=== PATIENT | male | born 1985 | race Asian ===

== ENCOUNTER 2024-10-27 23:50 | Inpatient (IN) | payer MEDICAID, OTHER ==
[~2024-10-27] VITALS: Ht 180.3 cm; Wt 79.5 kg
[2024-10-28] VITALS (10 sets, daily range): BP systolic 107–135; BP diastolic 53–83; PULSE 72–108; RESP 12–21; TEMP 97.5–98.3; O2SAT 97–99
[2024-10-28 00:44] LABS: Basophils # (auto) 0 10 ^3/uL (0-0.2); Basophils % (auto) 0.4 % (0.0-2.0); Eosinophils # (auto) 0 10 ^3/uL (0-0.8); Lymphocytes # (auto) 1.9 10 ^3/uL (0.4-5.4); Monocytes # (auto) 0.8 10 ^3/uL (0-1.3); Platelet Count (auto) 292 10^3/uL (140-450); Red Blood Cells 1.91 10^6/uL (4.5-5.90)
[2024-10-28 00:45] LABS: Eosinophils % (auto) 0.1 % (0.0-7.0); Hematocrit 17.4 % (41.0-53.0); Lymphocytes % (auto) 19.1 % (10.0-50.0); Mean Corpuscular Hemoglobin 32.5 pg (28.0-32.0); Mean Corpuscular Hgb Conc. 35.6 g/dL (32.0-36.0); Mean Corpuscular Volume 91.2 fL (80.0-100.0); Monocytes % (auto) 7.9 % (0.0-12.0); Neutrophils # (auto) 7.1 10 ^3/uL (1.6-8.6); Neutrophils % (auto) 72.5 % (37.0-80.0); Red Cell Distribution Width 14.9 % (11.8-14.3); White Blood Cell 9.9 10^3/uL (4.4-10.8)
[2024-10-28 00:57] LABS: Anion Gap 9 (5-15); Carbon Dioxide 24 mmol/L (20-31); Chloride 94 mmol/L (98-107); Potassium 3.5 mmol/L (3.5-5.1); Sodium 127 mmol/L (136-145)
[2024-10-28 00:59] LABS: Hemoglobin 6.2 g/dL (13.5-17.5)
[2024-10-28 01:02] LABS: BUN/Creatinine Ratio 25.5 (10.0-20.0)
[2024-10-28 01:10] LABS: Blood Urea Nitrogen 24 mg/dL (9-23); Calcium 8.2 mg/dL (8.7-10.4); Glucose 131 mg/dL (74-106)
--- NOTE | 2024-10-28 01:10 | ED.PDOC ---
History of Present Illness HPI Comments 39 y/o M, with a history of anxiety, panic attacks, PUD, and methamphetamine abuse, is BIBA for anxiety. Per EMS report, patient is a poor historian. He called, initially, for c/o anxiety and generalized abdominal pain following crystal meth use 2x hours prior to ED arrival. Vitals were noted to have been st able and within nithin limits. At time of assessment, patient endorses on anxiety symptom in addition to having associated shortness of breath and vomiting blood for the past few days. He denies any substance use along with any further associated symptoms. Further history is limited, due to patient's current condition and absence of family/crisis therapist historian. Chief Complaint: Abdominal Pain Time Seen by MD: 00:10 Allergies: Coded Allergies: NO KNOWN ALLERGIES (Unverified , 10/28/24) Mode of Arrival: EMS Past Medical History PAST MEDICAL HISTORY: Anxiety, PUD Past Medical History (Other): panic attacks Surgical History: Denies all surgeries Family History Family History: Unknown Social History Smoker: Non-Smoker Alcohol: Denies ETOH Use Drugs: Methamphetamine Lives In: Home All Other Systems: Reviewed and Negative (Comprehensive systems review obtained and negative except for what is stated in the HPI.) Physical Exam General Appearance: No Apparent Distress, Normal HEENT: Normal ENT Inspection, Pharynx Normal, TMs Normal Neck: Full Range of Motion, Non-Tender, Normal, Normal Inspection Respiratory: Chest Non-Tender, Lungs Clear, No Accessory Muscle Use, No Respiratory Distress, Normal Breath Sounds Cardiovascular: No Edema, No JVD, No Murmur, No Gallop, Normal Peripheral Pulses, Regular Rate/Rhythm Breast Exam: Deferred Gastrointestinal: No Organomegaly, Non Tender, No Pulsatile Mass, Normal Bowel Sounds, Soft Genitalia: Deferred Pelvic: Deferred Rectal: Deferred Extremities: No calf tenderness, Normal capillary refill, Normal inspection, Normal range of motion, Non-tender, No pedal edema Musculoskeletal : Apperance: Normal Neurologic: Alert, traffic law attorney II-XII nml as Tested, No Motor Deficits, Normal Affect, Normal Mood, No Sensory Deficits Cerebellar Function: Normal Reflexes: Normal Skin: Dry, Normal Color, Warm Lymphatic: No Adenopathy Was a procedure done? Was a procedure done?: No Differential Dx Considerations may include: Methamphetamine abuse, substance abuse/dependency, toxic metabolic enc ephalopathy, anxiety, among others X-Ray, Labs, Meds, VS Vital Signs Date Time Temp Pulse Resp B/P (MAP) Pulse Ox O2 Delivery O2 Flow Rate FiO2 10/28/24 04:00 96 10/28/24 02:56 97.5 96 19 120/75 (90) 99 97.5 10/27/24 23:59 98.3 108 19 149/54 (85) 99 98.3 10/27/24 23:51 99 Lab Test 10/28/24 00:37 Range/Units White Blood Count 9.9 4.4-10.8 10^3/uL Red Blood Count 1.91 L 4.5-5.90 10^6/uL Hemoglobin 6.2 *L 13.5-17.5 g/dL Hematocrit 17.4 L 41.0-53.0 % Mean Corpuscular Volume 91.2 80.0-100.0 fL Mean Corpuscular Hemoglobin 32.5 H 28.0-32.0 pg Mean Corpuscular Hemoglobin Concent 35.6 32.0-36.0 g/dL Red Cell Distribution Width 14.9 H 11.8-14.3 % Platelet Count 292 140-450 10^3/uL Mean Platelet Volume 7.6 6.9-10.8 fL Neutrophils (%) (Auto) 72.5 37.0-80.0 % Lymphocytes (%) (Auto) 19.1 10.0-50.0 % Monocytes (%) (Auto) 7.9 0.0-12.0 % Eosinophils (%) (Auto) 0.1 0.0-7.0 % Basophils (%) (Auto) 0.4 0.0-2.0 % Neutrophils # (Auto) 7.1 1.6-8.6 10 ^3/uL Lymphocytes # (Auto) 1.9 0.4-5.4 10 ^3/uL Monocytes # (Auto) 0.8 0-1.3 10 ^3/uL Eosinophils # (Auto) 0 0-0.8 10 ^3/uL Basophils # (Auto) 0 0-0.2 10 ^3/uL Nucleated Red Blood Cells 0.0 % Sodium Level 127 L 136-145 mmol/L Potassium Level 3.5 3.5-5.1 mmol/L Chloride Level 94 L 98-107 mmol/L Carbon Dioxide Level 24 20-31 mmol/L Anion Gap 9 5-15 Blood Urea Nitrogen 24 H 9-23 mg/dL Creatinine 0.94 0.700-1.30 mg/dL Glomerular Filtration Rate Calc 105 >90 mL/min BUN/Creatinine Ratio 25.5 H 10.0-20.0 Serum Glucose 131 H 74-106 mg/dL Calcium Level 8.2 L 8.7-10.4 mg/dL Current Medications Medications (Trade) Dose Ordered Sig/Daniel Route Start Time Stop Time Status Last Admin Pantoprazole Sodium (Protonix) 80 mg ONCE ONCE IV 10/28/24 02:00 10/28/24 02:03 DC 10/28/24 03:04 Time of 1ST Reevaluation: 00:40 Reevaluation 1ST: Unchanged Patient Education/Counseling: Diagnosis, Treatment, Other (need for observation ) Family Education/Counseling: No Family Present Additional Information Previous visits reviewed: N/A The following tests were ordered, and results were reviewed by me: CXR, drug screen, UA, BMP, CBC Additional Information was gathered from interviewing the following independent historians: EMS I reviewed and agreed with the following test results read by other providers: CXR I discussed treatment and results with medical personnel and: patient Departure 1 Departure Time of Disposition: 04:14 (Patient presented with abdominal pain that was concerning for possible appendicits, gastritis, cholecystitis, colitis, gastroenteritis, sbo, or orther possible surgical emergency. Data: 1. I ordered and reviewed the result of at least 3 labs including a CBC, BMP, and Urinalysis. 2. I independently interpreted the following tests: CT Abdoment and Pelvis is concerning for diffuse colitis .Risk:This patient has a high risk of morbidity due to further diagnostic testing or treatment and may suffer from an acute abdominal process disorder. Workup reveals symptomatic anemia and colitis and patient should be admitted for further workup. and possible expert consultation. ) Impression: Primary Impression: Symptomatic anemia Additional Impression: Peptic ulcer disease Disposition: ADMITTED INPATIENT Admit to: Tele Condition: Guarded Critical Care Note Critical Care Time?: Yes Critical care comment: Symptomatic anemia Authorized and Performed by: Maricruz Gutierres MD Total critical care time: Approximately 39 minutes Due to a high probability of clinically significant, life threatening deterioration, the patient required my highest level of preparedness to intervene emergently and I personally spent this critical care time directly and personally managing the patient. This critical care time included obtaining a history; examining the patient; pulse oximetry; ordering and review of studies; arranging urgent treatment with development of a management plan; evaluation of patient's response to treatment; frequent reassessment; and, discussions with other providers. This critical care time was performed to assess and manage the high probability of imminent, life-threatening deterioration that could result in multi-organ failure. It was exclusive of separately billable procedures and treating other patients and teaching time. Please see my other sections and the rest of the note for further information on patient assessment and treatment. Stability Stability form required: No Heart Score Heart Score: Heart Score Response (Comments) Value History N/A 0 EKG N/A 0 Age N/A 0 Risk Factors N/A 0 Troponin N/A 0 Total 0 I personally scribed for MARICRUZ GUTIERRES MD ([email or web address]) on 10/28/24 at 01:10. Electronically submitted by Emory José ([email or web address]). MARICRUZ GUTIERRES MD Oct 28, 2024 01:10
--- NOTE | 2024-10-28 01:34 | DVH ---
CHEST RADIOGRAPH Indication: epigastric pain Technique: Single frontal view of the chest was obtained COMPARISON: None FINDINGS: Lines and Tubes: None Lungs: Clear Pleura: No effusion. No pneumothorax. Cardiomediastinal contours: Unremarkable Bones: Unremarkable IMPRESSION: 1. No acute disease.
[2024-10-28] MEDS: IOHEXOL 300 MG/ML 100ML BOTTLE IJ ONE (03:01)
[2024-10-28] MEDS: PANTOPRAZOLE 40 MG/10 ML VIAL INJ IV ONE (03:04)
--- NOTE | 2024-10-28 03:10 | DVH ---
Exam: CT CT AB PEL WITH IV CON ONLY History: abdominal pain COMPARISON: None Technique: Multidetector spiral CT of the abdomen and pelvis was performed from lung bases to pubic s ymphysis. Intravenous contrast was administered during this examination. Portal venous imaging was o btained. Axial, coronal and sagittal multiplanar reformats were performed by the technologist on a [id number] workstation. Radiation Dose : 1. Abdomen/Pelvis: CTDIvol 9.96mGy, DLP 572.27 mGy*cm. Findings: Lung Bases: No acute or significant lung base finding. Normal heart size. No pleural or pericardial effusion. Liver: The liver is normal in size. No focal lesions. Normal hepatic vascular enhancement. Gallbladder and Biliary Tree: Unremarkable Spleen: Unremarkable Pancreas: The pancreas is normal in appearance without focal lesions or abnormal enhancement. Adrenal Glands: Unremarkable Kidneys: No hydronephrosis. Bladder: Unremarkable Bowel: The stomach is grossly normal in appearance. Moderate colonic stool. Mild inflammatory change in bowel wall thickening involving the gastric antrum and proximal duodenum. Normal appendix is visua lized in the right lower quadrant without findings of appendicitis. Ascites: Absent Lymphadenopathy: No mesenteric, retroperitoneal or periportal lymphadenopathy. Abdominal Wall and Mesentery: Unremarkable. Vasculature: The visualized abdominal aorta is normal in size and caliber. Abdominal and pelvic vess els demonstrate normal enhancement. Pelvic Organs: Unremarkable Musculoskeletal: No aggressive focal bony lesions, acute fractures or dislocation. IMPRESSION: Mild bowel wall thickening and inflammatory changes associated with the gastric antrum and proximal d uodenum. This may represent changes of gastritis / peptic ulcer disease.
--- NOTE | 2024-10-28 06:03 | DVHHPRES ---
History of Present Illness Resident Creating Document: REDDHERBERTTALHA RESIDENT History of Present Illness Patient is a 39-year-old male who was recently diagnosed with a peptic ulcer following endoscopy at [facility] presented to the ED with a chief complaint of severe abdominal pain and anxiety. Patient reports that he has been having abdominal pain for the last 2-3 days with the associated 3-4 episodes of bloody vomiting 2 days ago. He also reports of black dark-colored stool in the last 1 week. Patient reported that he had hematemesis about a month ago for the 1st time following which he went to [facility] and they did endoscopy and was diagnosed to with the gastric ulcer and sent home on PPI. He reported relief with the Protonix from the abdominal pain. Patient apparently ran out of his medication recently and started to have abdominal pain in the epigastric region nonradiating, constant with intermittent sharp episodes. Reports pain on swallowing to solid and liquid both and has sensation of food getting stuck in the chest. Past medical history: Peptic ulcer, anxiety Past Surgical history: Endoscopy Social history: Patient smokes about half a pack of cigarettes, occasional alcohol, denies any drug usage ( UDS pending ) Home medications: Omeprazole, Carafate, risperidone Review of Systems Review of Systems Patient seen and examined at the bedside Reports of [id number] epigastric pain associated with the nausea and dry heaving No current hematemesis Reports feeling anxious Allergies: Coded Allergies: NO KNOWN ALLERGIES (Unverified , 10/28/24) Medications Current Medications Medications Dose Ordered Sig/Daniel Route Start Time Stop Time Status Last Admin Dose Admin Pantoprazole Sodium 40 mg BID IV 10/28/24 10:00 Exam Vital Signs Vital Signs Date Time Temp Pulse Resp B/P (MAP) Pulse Ox O2 Delivery O2 Flow Rate FiO2 10/28/24 05:42 97.5 73 12 123/76 (92) 100 97.5 10/28/24 03:00 Room Air* 0 21 Exam Gen - mild conjunctival pallor, no icterus, no cyanosis, no clubbing, no LAD, no edema . Skin - Patients skin is warm and dry. HEENT - normocephalic, atraumatic, moist mucous membranes. Neck - full ROM, no LAD, no JVD Pulmonary - B/L equal breath sounds, no crackles, no wheezing, no stridor. cardiovascular - regular S1,S2 heard, no added sounds, no murmurs heard. peripheral pulses normal radial 2+, pedal 2+. capillary refill normal <2 secs. GI - soft abdomen with tenderness in the epigastric region. no hepatospleenomegaly. Bowel sounds normoactive Neurological - Patient is A/O X 3 . Bilateral upper extremity strength 5/5, bilateral lower extremity strength 5/5, no facial droop, normal speech, no tremor, no sensory deficiets. Labs/Xrays Labs Test 10/28/24 00:37 Range/Units White Blood Count 9.9 4.4-10.8 10^3/uL Red Blood Count 1.91 L 4.5-5.90 10^6/uL Hemoglobin 6.2 *L 13.5-17.5 g/dL Hematocrit 17.4 L 41.0-53.0 % Mean Corpuscular Volume 91.2 80.0-100.0 fL Mean Corpuscular Hemoglobin 32.5 H 28.0-32.0 pg Mean Corpuscular Hemoglobin Concent 35.6 32.0-36.0 g/dL Red Cell Distribution Width 14.9 H 11.8-14.3 % Platelet Count 292 140-450 10^3/uL Mean Platelet Volume 7.6 6.9-10.8 fL Neutrophils (%) (Auto) 72.5 37.0-80.0 % Lymphocytes (%) (Auto) 19.1 10.0-50.0 % Monocytes (%) (Auto) 7.9 0.0-12.0 % Eosinophils (%) (Auto) 0.1 0.0-7.0 % Basophils (%) (Auto) 0.4 0.0-2.0 % Neutrophils # (Auto) 7.1 1.6-8.6 10 ^3/uL Lymphocytes # (Auto) 1.9 0.4-5.4 10 ^3/uL Monocytes # (Auto) 0.8 0-1.3 10 ^3/uL Eosinophils # (Auto) 0 0-0.8 10 ^3/uL Basophils # (Auto) 0 0-0.2 10 ^3/uL Nucleated Red Blood Cells 0.0 % Sodium Level 127 L 136-145 mmol/L Potassium Level 3.5 3.5-5.1 mmol/L Chloride Level 94 L 98-107 mmol/L Carbon Dioxide Level 24 20-31 mmol/L Anion Gap 9 5-15 Blood Urea Nitrogen 24 H 9-23 mg/dL Creatinine 0.94 0.700-1.30 mg/dL Glomerular Filtration Rate Calc 105 >90 mL/min BUN/Creatinine Ratio 25.5 H 10.0-20.0 Serum Glucose 131 H 74-106 mg/dL Calcium Level 8.2 L 8.7-10.4 mg/dL Assessment/Plan Assessment/Plan Intractable abdominal pain Possible peptic ulcer disease GI bleed likely due to PUD Severe anemia likely due to above - CT abdomen pelvis with IV contrast shows mild bowel wall thickening and inflammatory changes associated with the gastric antrum and proximal duodenum - IV Protonix - NPO - GI consult - 2 large-bore IVs - IV fluids Goals of care discussed with the patient for over 27 minutes. Full code Time spent: 39 minutes Plan discussed with Dr. Escobar Plan discussed with: Patient, Other (RN Julienne) My Orders Orders - MARÍA RAINEY Procedure Category Date Status Time Admit ADMIT 10/28/24 Transmitted 05:13 Oxygen By Nasal RT 10/28/24 Transmitted Cannula 05:13 Stat Ekg For Chest [facility]AN[facility] 10/28/24 In Process Pain 05:13 Notify Md Of Changes BANNER 10/28/24 In Process From Base 05:13 Repair Service Dispatcher For BANNER 10/28/24 In Process 24 Hours 05:13 Emergency Dysrhythmia [facility]NER 10/28/24 In Process Protocol 05:13 Rhythm Strips Once [facility]AN[facility] 10/28/24 In Process Every Shift 05:13 Pantoprazole [facility] 10/28/24 In Process (Protonix) 10:00 Npo (Nothing By DIET 10/28/24 Transmitted Mouth) Diet Breakfast Complete Blood Count LAB 10/28/24 Logged 07:00 Comprehensive LAB 10/28/24 Logged Metabolic Panel 07:00 Date of Service: Oct 28, 2024 Billing Provider: HARPAL ESCOBAR MD Common Visit Codes: [id number] INP/OBS CARE (HIGH) Secondary Visit Codes: [id number] CARE PLAN 30 MINUTES MARÍA RAINEY RESIDENT Oct 28, 2024 06:03
[2024-10-28 06:57] LABS: Urine Bacteria None Seen /hpf (None Seen)
[2024-10-28] MEDS: MORPHINE SULFATE INJ 2 MG/ml SYRG IV ONE (07:12)
[2024-10-28 07:23] LABS: Urine Blood Negative /uL (Negative); Urine Clarity Clear (Clear); Urine Color Light-Yellow (Yellow); Urine Protein, UAD Negative (Negative); Urine Specific Gravity 1.043 (1.001-1.035); Urine Squamous Epithelial Cell None Seen /hpf (<5); Urine Urobilinogen Normal (Negative); Urine WBC 1 /HPF (0-3); Urine pH 5.5 (5.0-9.0)
[2024-10-28 07:33] LABS: Amphetamine Screen, Urine Pos (NEGATIVE); Barbiturate Scree,Urine Neg (NEGATIVE); Benzodiazephine Screen, Urine Neg (NEGATIVE); Cannabinoid Screen, Urine Neg (NEGATIVE); Cocaine Screen, Urine Neg (NEGATIVE); Opiate Scree,Urine Neg (NEGATIVE); Phencyclidine Screen, Urine Neg (NEGATIVE)
[2024-10-28] MEDS: SODIUM CHLORIDE 0.9% 500 ML IV ONE (10:10)
[2024-10-28] MEDS: PANTOPRAZOLE 40 MG/10 ML VIAL INJ IV SCH (10:14)
--- NOTE | 2024-10-28 11:14 | DVHPNRES ---
Progress Note Date Seen: Oct 28, 2024 Resident Creating Document: LIBORIO GEORGES RESIDENT Has the PT tested + for MRSA If YES, has PT been informed?: No Medical Necessity Reason Pt with a Central, PICC or Fol: No Subjective Review of Systems Patient is a 39-year-old male who was recently diagnosed with a peptic ulcer following endoscopy at [facility] presented to the ED with a chief complaint of severe abdominal pain and anxiety. Patient reports that he has been having abdominal pain for the last 2-3 days with the associated 3-4 episodes of bloody vomiting 2 days ago. He also reports of black dark-colored stool in the last 1 week. Patient reported that he had hematemesis about a month ago for the 1st time following which he went to [facility] and they did endoscopy and was diagnosed to with the gastric ulcer and sent home on PPI. He reported relief with the Protonix from the abdominal pain. Patient apparently ran out of his medication recently and started to have abdominal pain in the epigastric region nonradiating, constant with intermittent sharp episodes. Reports pain on swallowing to solid and liquid both and has sensation of food getting stuck in the chest. Past medical history: Peptic ulcer, anxiety Past Surgical history: Endoscopy Social history: Patient smokes about half a pack of cigarettes, occasional alcohol, denies any drug usage ( UDS pending ) Home medications: Omeprazole, Carafate, risperidone 10/28/24 Today vitals stable, 2URBCs given, no new episodes of hematemesis, pending CBC after transfusion, GI consult placed, continue NPO, fluids and protonix IV Objective vital signs Vital Sign Date Time Temp Pulse Resp B/P (MAP) Pulse Ox O2 Delivery O2 Flow Rate FiO2 10/28/24 08:49 98.0 89 16 129/79 98.0 10/28/24 08:00 Room Air* 0 21 10/28/24 08:00 100 Total Intake and Output 10/27/24 10/27/24 10/28/24 15:00 23:00 07:00 Intake Total 600 ml Output Total 0 ml Balance 600 ml medications Current Medications Medications Dose Ordered Sig/Daniel Route Start Time Stop Time Status Last Admin Dose Admin Pantoprazole Sodium 40 mg BID IV 10/28/24 10:00 10/28/24 10:14 40 MG Morphine Sulfate 2 mg Q4HPRN PRN IV 10/28/24 05:45 Sodium Chloride 1,000 ml @ 150 mls/hr Q6H40M IV 10/28/24 10:15 UNV Examination Gen - mild conjunctival pallor, no icterus, no cyanosis, no clubbing, no LAD, no edema . Skin - Patients skin is warm and dry. HEENT - normocephalic, atraumatic, moist mucous membranes. Neck - full ROM, no LAD, no JVD Pulmonary - B/L equal breath sounds, no crackles, no wheezing, no stridor. cardiovascular - regular S1,S2 heard, no added sounds, no murmurs heard. peripheral pulses normal radial 2+, pedal 2+. capillary refill normal <2 secs. GI - soft abdomen with tenderness in the epigastric region. no hepatospleenomegaly. Bowel sounds normoactive Neurological - Patient is A/O X 3 . Bilateral upper extremity strength 5/5, bilateral lower extremity strength 5/5, no facial droop, normal speech, no tremor, no sensory deficiets. laboratory and microbiology Laboratory Tests 10/28/24 00:37 Test 10/28/24 00:37 Range/Units Serum Glucose 131 H 74-106 mg/dL Problem List/Assessment/Plan Problem List/Assessment/Plan #Intractable abdominal pain #Possible peptic ulcer disease #GI bleed likely due to PUD #Severe anemia likely due to above #Meth abuse #Fentanyl abuse? - CT abdomen pelvis with IV contrast shows mild bowel wall thickening and inflammatory changes associated with the gastric antrum and proximal duodenum - IV Protonix - NPO - GI consult - 2 large-bore IVs - IV fluids -2 URBCs given, pending new cbc Goals of care discussed with the patient for over 27 minutes. Full code Time spent: 39 minutes Plan discussed with Dr. Huynh Plan discussed with: Patient, Other (rn) My Orders My Orders Orders - LIBORIO GEORGES RESIDENT Procedure Category Date Status Time Sodium Chloride 0.9% PHA 10/28/24 Logged 10:15 CC Plasma Assessment Blood Product Administration S: 0433 Date of Service: Oct 28, 2024 Billing Provider: CHIRAG HUYNH MD Common Visit Codes: [id number] INP/OBS CARE(HIGH) LIBORIO GEORGES RESIDENT Oct 28, 2024 11:14 CHIRAG HUYNH MD Oct 29, 2024 11:11
--- NOTE | 2024-10-28 12:20 | ECG ---
[facility] Test Date: 2024-10-27 Test Time: 23:51:40 Pat Name: CLAUDIA DOW Department: ED Room: [address] [place] [address] Gender: M Patient Escort: JAVIER : 1985 Requested By: MARICRUZ KHALIL Order Number: [id number] Reading MD: Lul Duval Measurements Intervals [place] Rate: 99 P: 94 CO: 179 QRS: 79 QRSD: 97 T: 38 QT: 385 QTc: 495 Interpretive Statements Sinus rhythm Borderline prolonged QT interval Electronically Signed On 10-29-2024 14:58:12 PDT by Lul Duval Please click the below link to view image of tracing.
[2024-10-28] MEDS: SODIUM CHLORIDE 0.9% 1,000 ML IV SCH (12:35)
--- NOTE | 2024-10-28 13:05 | DVHINCON2 ---
GI Consult Consult Note GI consult note Date of Consultation: 10/28/2024 Chief Complaint: Upper GI bleed Referring Physician:Dr Carolina H&P: 39-year-old male presents to ER with complains of abdominal pain for the last 2- 3 days, with nausea and vomiting with episodes of bloody vomiting for two days. Patient's admits to having episodes of 3-4 times dark emesis yesterday. Also has melena for one day. No red blood in stool. Patient only complains of nausea at this time. No vomiting. Patient denies alcohol use and no drug use Status post EGD [facility] about a month ago. Was discharged with a PPIs which patient ran out recently and this seemed to worsen his abdominal pain Past Medical History: PUD, anxiety Past Surgical History: Social History: + smoking, positive fentanyl and amphetamine per drug screen test Family History: Noncontributory Review of Systems: Constitutional: no fever, chill, weight loss HEENT: no eye pain, no hearing loss, no oral lesion, no scleral icterus Heart: no chest pain, no chest pressure Lung: no cough, no dyspnea with exertion Abdomen: see HPI Physical exam: General: NAD, AAOX3 Chest: lung george clear to auscultation Heart: RRR, no murmur Abdomen: non-distended, no tenderness to palpation, +BS Labs: Labs Test 10/28/24 06:34 10/28/24 00:37 Range/Units Urine Color Light-yellow Yellow Urine Clarity Clear Clear Urine pH 5.5 5.0-9.0 Urine Specific [place] 1.043 H 1.001-1.035 Urine Protein Negative Negative Urine Ketones 1+ H Negative Urine Blood Negative Negative /uL Urine Nitrite Negative Negative Urine Bilirubin Negative Negative Urine Urobilinogen Normal Negative mg/dL Urine Leukocyte Esterase Negative Negative /uL Urine RBC None seen 0 - 3 /hpf Urine Microscopic WBC 1 0-3 /HPF Urine Squamous Epithelial Cells None seen <5 /hpf Urine Bacteria None seen None Seen /hpf Urine Glucose Normal Normal mg/dL Urine Opiates Screen Neg NEGATIVE Urine Fentanyl Screen Pos NEGATIVE Urine Barbiturates Screen Neg NEGATIVE Urine Phencyclidine Screen Neg NEGATIVE Urine Amphetamines Screen Pos NEGATIVE Urine Benzodiazepines Screen Neg NEGATIVE Urine Cocaine Screen Neg NEGATIVE Urine Cannabinoids Screen Neg NEGATIVE White Blood Count 9.9 4.4-10.8 10^3/uL Red Blood Count 1.91 L 4.5-5.90 10^6/uL Hemoglobin 6.2 *L 13.5-17.5 g/dL Hematocrit 17.4 L 41.0-53.0 % Mean Corpuscular Volume 91.2 80.0-100.0 fL Mean Corpuscular Hemoglobin 32.5 H 28.0-32.0 pg Mean Corpuscular Hemoglobin Concent 35.6 32.0-36.0 g/dL Red Cell Distribution Width 14.9 H 11.8-14.3 % Platelet Count 292 140-450 10^3/uL Mean Platelet Volume 7.6 6.9-10.8 fL Neutrophils (%) (Auto) 72.5 37.0-80.0 % Lymphocytes (%) (Auto) 19.1 10.0-50.0 % Monocytes (%) (Auto) 7.9 0.0-12.0 % Eosinophils (%) (Auto) 0.1 0.0-7.0 % Basophils (%) (Auto) 0.4 0.0-2.0 % Neutrophils # (Auto) 7.1 1.6-8.6 10 ^3/uL Lymphocytes # (Auto) 1.9 0.4-5.4 10 ^3/uL Monocytes # (Auto) 0.8 0-1.3 10 ^3/uL Eosinophils # (Auto) 0 0-0.8 10 ^3/uL Basophils # (Auto) 0 0-0.2 10 ^3/uL Nucleated Red Blood Cells 0.0 % Sodium Level 127 L 136-145 mmol/L Potassium Level 3.5 3.5-5.1 mmol/L Chloride Level 94 L 98-107 mmol/L Carbon Dioxide Level 24 20-31 mmol/L Anion Gap 9 5-15 Blood Urea Nitrogen 24 H 9-23 mg/dL Creatinine 0.94 0.700-1.30 mg/dL Glomerular Filtration Rate Calc 105 >90 mL/min BUN/Creatinine Ratio 25.5 H 10.0-20.0 Serum Glucose 131 H 74-106 mg/dL Calcium Level 8.2 L 8.7-10.4 mg/dL Imaging: CT abdomen pelvis IMPRESSION: Mild bowel wall thickening and inflammatory changes associated with the gastric antrum and proximal duodenum. This may represent changes of gastritis / peptic ulcer disease. Assessment: Abdominal pain Hematemesis Anemia History of PUD Plan: Discussed with Dr. Marquez Protonix and Carafate Monitor labs, transfuse if hemoglobin is less than seven Obtain records of EGD from [facility] We will continue to follow patient Discussed plan with patient and RN Thank you for this consult Date of Service: Oct 28, 2024 Billing Provider: YANICK SHARIF Common Visit Codes: CONSULT ONLY Consultation Codes: [id number] CONSULT <60MIN YANICK SHARIF Oct 28, 2024 13:05
[2024-10-28 13:18] LABS: Basophils # (auto) 0 10 ^3/uL (0-0.2); Basophils % (auto) 0.2 % (0.0-2.0); Eosinophils # (auto) 0 10 ^3/uL (0-0.8); Hematocrit 23.4 % (41.0-53.0); Hemoglobin 8.2 g/dL (13.5-17.5); Lymphocytes # (auto) 1.2 10 ^3/uL (0.4-5.4); Lymphocytes % (auto) 17.5 % (10.0-50.0); Mean Corpuscular Hemoglobin 31.5 pg (28.0-32.0); Mean Corpuscular Volume 89.9 fL (80.0-100.0); Monocytes # (auto) 0.5 10 ^3/uL (0-1.3); Monocytes % (auto) 7.6 % (0.0-12.0); Neutrophils # (auto) 5.3 10 ^3/uL (1.6-8.6); Neutrophils % (auto) 74.7 % (37.0-80.0); Platelet Count (auto) 197 10^3/uL (140-450); Red Cell Distribution Width 15.2 % (11.8-14.3); White Blood Cell 7.1 10^3/uL (4.4-10.8)
[2024-10-28 13:35] LABS: Alanine Aminotransferase 11 U/L (7-40); Alkaline Phosphatase 49 U/L (46-116); Anion Gap 8 (5-15); BUN/Creatinine Ratio 19.3 (10.0-20.0); Blood Urea Nitrogen 16 mg/dL (9-23); Carbon Dioxide 22 mmol/L (20-31); Chloride 102 mmol/L (98-107); Glucose 79 mg/dL (74-106); Potassium 3.7 mmol/L (3.5-5.1)
[2024-10-28 13:36] LABS: Albumin 3.4 g/dL (3.2-4.8); Bilirubin, Total 1.1 mg/dL (0.2-1.0)
[2024-10-28 13:37] LABS: Aspartate Aminotransferase 12 U/L (13-40); Calcium 8.4 mg/dL (8.7-10.4); Partial Thromboplastin Time 27.3 SEC (24.5-34.5); Prothrombin Time 10.6 sec (9.3-11.8); Sodium 132 mmol/L (136-145); Total Protein 4.8 g/dL (5.7-8.2)
[2024-10-28] MEDS: MORPHINE SULFATE INJ 2 MG/ml SYRG IV PRN (16:04)
[2024-10-28] MEDS: MORPHINE SULFATE 4 MG/ML SYR/VIAL ONE (16:18)
[2024-10-28] MEDS: SUCRALFATE 1 GM/10 ML ORAL SUSP PO SCH (21:37)
[2024-10-29] VITALS (11 sets, daily range): BP systolic 121–152; BP diastolic 56–88; PULSE 62–98; RESP 12–19; TEMP 97.9–99.2; O2SAT 95–100
[2024-10-29 06:28] LABS: Basophils # (auto) 0 10 ^3/uL (0-0.2); Eosinophils # (auto) 0 10 ^3/uL (0-0.8); Eosinophils % (auto) 0.4 % (0.0-7.0); Hemoglobin 7.5 g/dL (13.5-17.5); Lymphocytes # (auto) 1.2 10 ^3/uL (0.4-5.4)
[2024-10-29 06:31] LABS: Alanine Aminotransferase 12 U/L (7-40); Anion Gap 11 (5-15); Aspartate Aminotransferase 16 U/L (13-40); BUN/Creatinine Ratio 12.2 (10.0-20.0); Blood Urea Nitrogen 10 mg/dL (9-23); Carbon Dioxide 21 mmol/L (20-31); Chloride 105 mmol/L (98-107); Glucose 79 mg/dL (74-106); Sodium 137 mmol/L (136-145)
[2024-10-29 06:32] LABS: Albumin 3.2 g/dL (3.2-4.8); Alkaline Phosphatase 44 U/L (46-116); Basophils % (auto) 0.4 % (0.0-2.0); Bilirubin, Total 0.7 mg/dL (0.2-1.0); Calcium 7.9 mg/dL (8.7-10.4); Hematocrit 21.7 % (41.0-53.0); Lymphocytes % (auto) 22.4 % (10.0-50.0); Mean Corpuscular Hemoglobin 31.4 pg (28.0-32.0); Mean Corpuscular Hgb Conc. 34.6 g/dL (32.0-36.0); Mean Corpuscular Volume 90.8 fL (80.0-100.0); Monocytes # (auto) 0.4 10 ^3/uL (0-1.3); Monocytes % (auto) 8.4 % (0.0-12.0); Neutrophils # (auto) 3.6 10 ^3/uL (1.6-8.6); Neutrophils % (auto) 68.4 % (37.0-80.0); Nucleated Red Blood Cells % 0.5 %; Platelet Count (auto) 221 10^3/uL (140-450); Potassium 3.1 mmol/L (3.5-5.1); Red Blood Cells 2.39 10^6/uL (4.5-5.90); Red Cell Distribution Width 15.8 % (11.8-14.3); Total Protein 4.7 g/dL (5.7-8.2); White Blood Cell 5.3 10^3/uL (4.4-10.8)
[2024-10-29] MEDS ORDERED: SODIUM CHLORIDE LOCK 10 ML ONE (09:29)
--- NOTE | 2024-10-29 10:48 | DVHPNRES ---
Progress Note Date Seen: Oct 29, 2024 Resident Creating Document: CHIRAG HUYNH MD Has the PT tested + for MRSA If YES, has PT been informed?: No Medical Necessity Reason Pt with a Central, PICC or Fol: No Subjective Review of Systems Patient is a 39-year-old male who was recently diagnosed with a peptic ulcer following endoscopy at [facility] presented to the ED with a chief complaint of severe abdominal pain and anxiety. Patient reports that he has been having abdominal pain for the last 2-3 days with the associated 3-4 episodes of bloody vomiting 2 days ago. He also reports of black dark-colored stool in the last 1 week. Patient reported that he had hematemesis about a month ago for the 1st time following which he went to [facility] and they did endoscopy and was diagnosed to with the gastric ulcer and sent home on PPI. He reported relief with the Protonix from the abdominal pain. Patient apparently ran out of his medication recently and started to have abdominal pain in the epigastric region nonradiating, constant with intermittent sharp episodes. Reports pain on swallowing to solid and liquid both and has sensation of food getting stuck in the chest. Past medical history: Peptic ulcer, anxiety Past Surgical history: Endoscopy Social history: Patient smokes about half a pack of cigarettes, occasional alcohol, denies any drug usage ( UDS pending ) Home medications: Omeprazole, Carafate, risperidone 10/28/24 Today vitals stable, 2URBCs given, no new episodes of hematemesis, pending CBC after transfusion, GI consult placed, continue NPO, fluids and protonix IV 10/29/24: hb 7.5, EGD done, no active bleeding but esophageal and duodenal ulcers present, Objective vital signs Vital Sign Date Time Temp Pulse Resp B/P (MAP) Pulse Ox O2 Delivery O2 Flow Rate FiO2 10/29/24 08:54 97.9 66 17 123/73 (90) 96 97.9 10/29/24 08:00 Room Air* 0 21 Total Intake and Output 10/28/24 10/28/24 10/29/24 15:00 23:00 07:00 Intake Total 1400 ml 450 ml 2400 ml Output Total 300 ml 1400 ml Balance 1100 ml 450 ml 1000 ml medications Current Medications Medications Dose Ordered Sig/Daniel Route Start Time Stop Time Status Last Admin Dose Admin Pantoprazole Sodium 40 mg BID IV 10/28/24 10:00 10/29/24 09:10 40 MG Morphine Sulfate 2 mg Q4HPRN PRN IV 10/28/24 05:45 10/28/24 16:04 2 MG Sodium Chloride 1,000 ml @ 150 mls/hr Q6H40M IV 10/28/24 10:15 10/29/24 04:57 150 MLS/HR Sucralfate 1 gm TID@0600,1130,2200 PO 10/28/24 22:00 10/28/24 21:37 1 GM Examination Gen - mild conjunctival pallor, no icterus, no cyanosis, no clubbing, no LAD, no edema . Skin - Patients skin is warm and dry. HEENT - normocephalic, atraumatic, moist mucous membranes. Neck - full ROM, no LAD, no JVD Pulmonary - B/L equal breath sounds, no crackles, no wheezing, no stridor. cardiovascular - regular S1,S2 heard, no added sounds, no murmurs heard. peripheral pulses normal radial 2+, pedal 2+. capillary refill normal <2 secs. GI - soft abdomen with tenderness in the epigastric region. no hepatospleenomegaly. Bowel sounds normoactive Neurological - Patient is A/O X 3 . Bilateral upper extremity strength 5/5, bilateral lower extremity strength 5/5, no facial droop, normal speech, no tremor, no sensory deficiets. laboratory and microbiology Laboratory Tests 10/29/24 05:19 Test 10/29/24 05:19 Range/Units Serum Glucose 79 74-106 mg/dL Problem List/Assessment/Plan Problem List/Assessment/Plan #Intractable abdominal pain #GI bleed likely due to below #2 cm sliding-type hiatal hernia with grade B erosive esophagitis # distal esophageal ulcers at the GE junction, #Kiiheqob-xb-cvryxw duodenitis with a 1.5 cm duodenal bulb ulcer on the anterior surface Heath classification C with no visible vessel # Mild gastritis otherwise normal examination up to the 2nd and 3rd part of the duodenum with no active bleeding and good bile drainage #Severe anemia likely due to above #Meth abuse #Fentanyl abuse? - CT abdomen pelvis with IV contrast shows mild bowel wall thickening and inflammatory changes associated with the gastric antrum and proximal duodenum - IV Protonix - clear liquid diet - GI consult: EGD done today - 2 large-bore IVs - IV fluids -2 URBCs given, cbc today: hb 7.5 Goals of care discussed with the patient for over 27 minutes. Full code Time spent: 39 minutes Plan discussed with Dr. Huynh Plan discussed with: Patient, Other (rn) CC Plasma Assessment Blood Product Administration S: [id number] Date of Service: Oct 29, 2024 Billing Provider: CHIRAG HUYNH MD Common Visit Codes: [id number] INP/OBS CARE(HIGH) LIBORIO GEORGES RESIDENT Oct 29, 2024 10:48 CHIRAG HUYNH MD Oct 30, 2024 13:47
[2024-10-29] MEDS: LIDOCAINE VISCOUS 2% 15ML UD ONE (14:03)
[2024-10-29] MEDS: MIDAZOLAM HCL 5 MG/ML-1ML VIAL ONE (14:07)
[2024-10-29] MEDS: fentaNYL CITRATE 100 MCG/2 ML VL ONE (14:07)
[2024-10-29] MEDS: diphenhdrAMINE HCL 50 MG/1 ML VL ONE (14:07)
--- NOTE | 2024-10-29 14:21 | DVHOP2 ---
Operative Report DATE OF OPERATION: 10/29/24 PROCEDURE: Upper Endoscopy with biopsy. PREOPERATIVE INDICATION: The patient is a 39 -year-old male undergoing endoscopy for upper GI bleed POSTOPERATIVE DIAGNOSES: 1. 2 cm sliding-type hiatal hernia with grade B erosive esophagitis and some distal esophageal ulcers at the GE junction, there were no esophageal varices 2. Aijvopab-ft-qchrlb duodenitis with a 1.5 cm duodenal bulb ulcer on the anterior surface Heath classification C with no visible vessel 3. Mild gastritis otherwise normal examination up to the 2nd and 3rd part of the duodenum with no active bleeding and good bile drainage PROCEDURE PERFORMED BY: Patricia Marquez GI NURSE: Laura SCOPE: Olympus videoendoscope. ASA CLASS: 3 PREOPERATIVE MEDICATIONS: Versed 3 mg, Fentanyl 100 mcg, Benadryl 50 mg I administered moderate sedation throughout this _8_ minutes procedure. An independent trained observer pushed medications at my direction, and monitored the patient's level of consciousness and physiological status throughout. PROCEDURE IN DETAIL: After obtaining an informed consent, the patient was placed on left lateral decubitus position. The patient was then sedated with the above medications. A bite block was placed between his teeth. The endoscope was then passed through the oropharynx, into the esophagus, and through the stomach and pylorus up to the second and third part of the duodenum. The endoscope was then withdrawn. There was no fresh or old blood in the GI tract The 2nd and 3rd part of the duodenal were normal. Duodenal bulb and postbulbar area showed severe duodenitis Duodenal biopsies were obtained. There was a 1.5 cm duodenal bulb once the anterior surface of the duodenal bulb Heath classification C with no visible vessel or active bleeding The pre-pyloric area and antrum showed mild antral gastritis. On retroflexion the fundus and cardia were normal. Gastric biopsies were obtained. The endoscope was then withdrawn into the distal esophagus where he had a 2 cm sliding-type hiatal hernia with grade B erosive esophagitis GE junction biopsies were obtained. The remaining distal and proximal esophagus and oropharynx were unremarkable. There were no varices The patient tolerated the procedure well without difficulty. COMPLICATIONS : None SPECIMENS: Gastric biopsies Antral biopsies GE junction biopsies DISPOSITION: Transfer back to the floor Stable PLAN: 1. Await for biopsy result 2. Will place pt on Protonix 40 mg bid IV 3. Carafate suspension 1 g p.o. 4 times a day 4. Clear liquid diet 5. Monitor labs and transfuse 1 unit PRBC if hemoglobin is less than seven 6. DC aspirin NSAIDs smoking alcohol and substance abuse 7. Upon discharge patient needs to be given prescription for Protonix and Carafate treatment for 3-4 months PATRICIA MARQUEZ MD Oct 29, 2024 14:21
[2024-10-29] MEDS: SUCRALFATE 1 GM/10 ML ORAL SUSP PO SCH (17:06)
[2024-10-30 01:00] VITALS: BP 125/73; PULSE 63; RESP 17; TEMP 97.7; O2SAT 98
[2024-10-30 05:00] VITALS: BP 112/80; PULSE 65; RESP 16; TEMP 97.9; O2SAT 98
[2024-10-30 06:05] LABS: Basophils # (auto) 0 10 ^3/uL (0-0.2); Eosinophils # (auto) 0 10 ^3/uL (0-0.8); Hemoglobin 8.4 g/dL (13.5-17.5); Monocytes # (auto) 0.5 10 ^3/uL (0-1.3); Neutrophils # (auto) 3.7 10 ^3/uL (1.6-8.6); Nucleated Red Blood Cells % 0.2 %; Red Cell Distribution Width 16.1 % (11.8-14.3); White Blood Cell 5.7 10^3/uL (4.4-10.8)
[2024-10-30 06:10] LABS: Basophils % (auto) 0.4 % (0.0-2.0); Eosinophils % (auto) 0.8 % (0.0-7.0); Hematocrit 24.1 % (41.0-53.0); Lymphocytes # (auto) 1.5 10 ^3/uL (0.4-5.4); Lymphocytes % (auto) 26.4 % (10.0-50.0); Mean Corpuscular Hemoglobin 31.6 pg (28.0-32.0); Mean Corpuscular Hgb Conc. 34.8 g/dL (32.0-36.0); Mean Corpuscular Volume 90.8 fL (80.0-100.0); Monocytes % (auto) 8.2 % (0.0-12.0); Neutrophils % (auto) 64.2 % (37.0-80.0); Platelet Count (auto) 283 10^3/uL (140-450); Red Blood Cells 2.65 10^6/uL (4.5-5.90)
[2024-10-30 08:00] VITALS: PULSE 89; RESP 18
[2024-10-30] MEDS: POTASSIUM CHL 20 Meq TABLET PO ONE (08:29)
[2024-10-30 08:40] VITALS: BP 127/86; PULSE 78; RESP 19; TEMP 96.7; O2SAT 95
[2024-10-30] MEDS ORDERED: PANT40T PO (08:43)
[2024-10-30] MEDS ORDERED: SUCR1TAB31 PO (08:44)
[2024-10-30] MEDS ORDERED: FERR1TAB36 PO (08:44)
--- NOTE | 2024-10-30 11:59 | DVHDSRES ---
Discharge Summary Date of Admission Resident Creating Document: CHIRAG HUYNH MD Oct 28, 2024 at 05:13 Date of Discharge: Oct 30, 2024 Admitting Diagnosis GI bleeding Labs/Diagnostic Data: Laboratory Results Test 10/30/24 05:08 10/29/24 05:19 10/28/24 12:55 10/28/24 06:34 White Blood Count 5.7 10^3/uL (4.4-10.8) Red Blood Count 2.65 10^6/uL (4.5-5.90) Hemoglobin 8.4 g/dL (13.5-17.5) Hematocrit 24.1 % (41.0-53.0) Mean Corpuscular Volume 90.8 fL (80.0-100.0) Mean Corpuscular Hemoglobin 31.6 pg (28.0-32.0) Mean Corpuscular Hemoglobin Concent 34.8 g/dL (32.0-36.0) Red Cell Distribution Width 16.1 % (11.8-14.3) Platelet Count 283 10^3/uL (140-450) Mean Platelet Volume 7.5 fL (6.9-10.8) Neutrophils (%) (Auto) 64.2 % (37.0-80.0) Lymphocytes (%) (Auto) 26.4 % (10.0-50.0) Monocytes (%) (Auto) 8.2 % (0.0-12.0) Eosinophils (%) (Auto) 0.8 % (0.0-7.0) Basophils (%) (Auto) 0.4 % (0.0-2.0) Neutrophils # (Auto) 3.7 10 ^3/uL (1.6-8.6) Lymphocytes # (Auto) 1.5 10 ^3/uL (0.4-5.4) Monocytes # (Auto) 0.5 10 ^3/uL (0-1.3) Eosinophils # (Auto) 0 10 ^3/uL (0-0.8) Basophils # (Auto) 0 10 ^3/uL (0-0.2) Nucleated Red Blood Cells 0.2 % Sodium Level 137 mmol/L (136-145) Potassium Level 3.1 mmol/L (3.5-5.1) Chloride Level 105 mmol/L (98-107) Carbon Dioxide Level 21 mmol/L (20-31) Anion Gap 11 (5-15) Blood Urea Nitrogen 10 mg/dL (9-23) Creatinine 0.82 mg/dL (0.700-1.30) Glomerular Filtration Rate Calc 114 mL/min (>90) BUN/Creatinine Ratio 12.2 (10.0-20.0) Serum Glucose 79 mg/dL (74-106) Calcium Level 7.9 mg/dL (8.7-10.4) Total Bilirubin 0.7 mg/dL (0.2-1.0) Aspartate Amino Transferase (AST) 16 U/L (13-40) Alanine Aminotransferase (ALT) 12 U/L (7-40) Alkaline Phosphatase 44 U/L (46-116) Total Protein 4.7 g/dL (5.7-8.2) Albumin 3.2 g/dL (3.2-4.8) Prothrombin Time 10.6 sec (9.3-11.8) Prothrombin Time INR 1.00 (0.9-1.15) Activated Partial Thromboplast Time 27.3 SEC (24.5-34.5) Urine Color Light-yellow (Yellow) Urine Clarity Clear (Clear) Urine pH 5.5 (5.0-9.0) Urine Specific [place] 1.043 (1.001-1.035) Urine Protein Negative (Negative) Urine Ketones 1+ (Negative) Urine Blood Negative /uL (Negative) Urine Nitrite Negative (Negative) Urine Bilirubin Negative (Negative) Urine Urobilinogen Normal mg/dL (Negative) Urine Leukocyte Esterase Negative /uL (Negative) Urine RBC None seen /hpf (0 - 3) Urine Microscopic WBC 1 /HPF (0-3) Urine Squamous Epithelial Cells None seen /hpf (<5) Urine Bacteria None seen /hpf (None Seen) Urine Glucose Normal mg/dL (Normal) Urine Opiates Screen Neg (NEGATIVE) Urine Fentanyl Screen Pos (NEGATIVE) Urine Barbiturates Screen Neg (NEGATIVE) Urine Phencyclidine Screen Neg (NEGATIVE) Urine Amphetamines Screen Pos (NEGATIVE) Urine Benzodiazepines Screen Neg (NEGATIVE) Urine Cocaine Screen Neg (NEGATIVE) Urine Cannabinoids Screen Neg (NEGATIVE) Other Laboratory Tests 10/30/24 05:08 10/29/24 05:19 Brief Hx & Hospital Course: The patient presented with intractable abdominal pain and associated GI symptoms including multiple episodes of hematochezia and melena. He had a prior diagnosis of peptic ulcer disease and was recently noncompliant with his PPI regimen. EGD revealed grade B erosive esophagitis due to a 2 cm sliding hiatal hernia, distal esophageal ulcers at the GE junction, and eertgniu-gn-lxwiix duodenitis with a 1.5 cm duodenal bulb ulcer (Heath classification C, no visible vessel). No active bleeding was found during the procedure. Imaging showed mild bowel wall thickening and inflammatory changes in the gastric antrum and proximal duodenum. He was transfused with 2 units of RBCs for symptomatic anemia (Hb improved from 6.0 to 8.4). Discharge Medications: Pantoprazole 40 mg PO BID Sucralfate 1 g PO BID Iropn PO Discharge Instructions: Advance diet as tolerated to soft mechanical Avoid NSAIDs, aspirin, alcohol, methamphetamines, and smoking Follow-up with PCP and GI within 24 weeks for review of biopsy results and further management Case discussed with Dr Huynh Consults/Reason for consult GI due to hematemesis Operations or Procedures PROCEDURE: Upper Endoscopy with biopsy. PREOPERATIVE INDICATION: The patient is a 39 -year-old male undergoing endoscopy for upper GI bleed POSTOPERATIVE DIAGNOSES: 1. 2 cm sliding-type hiatal hernia with grade B erosive esophagitis and some distal esophageal ulcers at the GE junction, there were no esophageal varices 2. Obnjgiti-ke-zlgwyf duodenitis with a 1.5 cm duodenal bulb ulcer on the anterior surface Heath classification C with no visible vessel 3. Mild gastritis otherwise normal examination up to the 2nd and 3rd part of the duodenum with no active bleeding and good bile drainage PROCEDURE PERFORMED BY: Raisa Marquez GI NURSE: Laura SCOPE: Olympus videoendoscope. ASA CLASS: 3 PREOPERATIVE MEDICATIONS: Versed 3 mg, Fentanyl 100 mcg, Benadryl 50 mg I administered moderate sedation throughout this _8_ minutes procedure. An independent trained observer pushed medications at my direction, and monitored the patient's level of consciousness and physiological status throughout. PROCEDURE IN DETAIL: After obtaining an informed consent, the patient was placed on left lateral decubitus position. The patient was then sedated with the above medications. A bite block was placed between his teeth. The endoscope was then passed through the oropharynx, into the esophagus, and through the stomach and pylorus up to the second and third part of the duodenum. The endoscope was then withdrawn. There was no fresh or old blood in the GI tract The 2nd and 3rd part of the duodenal were normal. Duodenal bulb and postbulbar area showed severe duodenitis Duodenal biopsies were obtained. There was a 1.5 cm duodenal bulb once the anterior surface of the duodenal bulb Heath classification C with no visible vessel or active bleeding The pre-pyloric area and antrum showed mild antral gastritis. On retroflexion the fundus and cardia were normal. Gastric biopsies were obtained. The endoscope was then withdrawn into the distal esophagus where he had a 2 cm sliding-type hiatal hernia with grade B erosive esophagitis GE junction biopsies were obtained. The remaining distal and proximal esophagus and oropharynx were unremarkable. There were no varices The patient tolerated the procedure well without difficulty. COMPLICATIONS : None SPECIMENS: Gastric biopsies Antral biopsies GE junction biopsies DISPOSITION: Transfer back to the floor Stable PLAN: 1. Await for biopsy result 2. Will place pt on Protonix 40 mg bid IV 3. Carafate suspension 1 g p.o. 4 times a day 4. Clear liquid diet 5. Monitor labs and transfuse 1 unit PRBC if hemoglobin is less than seven 6. DC aspirin NSAIDs smoking alcohol and substance abuse 7. Upon discharge patient needs to be given prescription for Protonix and Carafate treatment for 3-4 months Condition at Discharge: Stable Final Diagnosis/Problems List #Intractable abdominal pain #GI bleed likely due to below #2 cm sliding-type hiatal hernia with grade B erosive esophagitis # distal esophageal ulcers at the GE junction, #Rrderpst-qi-sflfut duodenitis with a 1.5 cm duodenal bulb ulcer on the anterior surface Heath classification C with no visible vessel # Mild gastritis otherwise normal examination up to the 2nd and 3rd part of the duodenum with no active bleeding and good bile drainage #Severe anemia likely due to above with the need of transfusion #Meth abuse #Fentanyl abuse? Discharge Disposition: Home Discharge Instruct/Medications Diet: Regular Activity: No Restrictions, As Tolerated Follow Up/Referral: dc clinic 1 week, please schedule appt with Dr Marquez GI Medications: see prescirption Discharge Statement: "Patient was advised to return to the ER or call 911 if any headaches, dizziness, shortness of breath, chest pain, abdominal pain, bleeding, fevers, or worsening of medical condition. Patient was counseled about treatment plan, medications, possible side effects, patientverbalized understanding. All questions were answered to the best of my ability. This discharge took greater then 30 minutes in planning, reviewing documentation, counseling the patient, and discussing with other team members." ASSESSMENT ASSESSMENT Assessment GI bleeding Date of Service: Oct 30, 2024 Billing Provider: CHIRAG HUYNH MD Common Visit Codes: [id number]-[id number] DISCH DAY >30min LIBORIO GEORGES RESIDENT Oct 30, 2024 11:59 CHIRAG HUYNH MD Nov 04, 2024 14:44
[2024-10-30] MEDS ORDERED: IRON SUCROSE COMPLEX 110 ML IV SCH (12:00)
[2024-10-30 12:14] VITALS: BP 129/68; PULSE 65; RESP 20; TEMP 97.9; O2SAT 97
--- NOTE | 2024-10-30 23:13 | DVHPN2 ---
Progress Note - Dictate Date Seen: Oct 30, 2024 (Late entryTime of visit 12 noon) Has the PT tested + for MRSA If YES, has PT been informed?: No Medical Necessity Reason Pt with a Central, PICC or Fol: No Subjective No new complaints Tolerating diet No nausea vomiting or GI bleeding EGD findings of severe GERD duodenitis and duodenal ulcer discussed with patient vital signs Vital Sign Date Time Temp Pulse Resp B/P (MAP) Pulse Ox O2 Delivery O2 Flow Rate FiO2 10/30/24 12:14 97.9 65 20 129/68 (88) 97 97.9 10/30/24 08:00 Room Air* 0 21 Total Intake and Output 10/29/24 10/29/24 10/30/24 15:00 23:00 07:00 Intake Total 100 ml 0 ml 1500 ml Output Total 700 ml 3625 ml Balance 100 ml -700 ml -2125 ml objective General: NAD, AAOX3 Chest: lung george clear to auscultation Heart: RRR, no murmur Abdomen: non-distended, no tenderness to palpation, +BS laboratory and microbiology Laboratory Tests 10/30/24 05:08 10/29/24 05:19 Test 10/29/24 05:19 Range/Units Serum Glucose 79 74-106 mg/dL Problems(with codes): (1) Hiatal hernia with gastroesophageal reflux disease and esophagitis (2) Symptomatic anemia (3) Peptic ulcer disease Prognosis Plan Advance to soft mechanical diet Protonix 40 mg p.o. twice a day Carafate 1 g p.o. twice a day DC aspirin NSAIDs smoking alcohol methamphetamines Outpatient follow up with me in 2-4 weeks to review results and discuss further management Discharge planning is in progress for today Plan discussed with: Patient CC Plasma Assessment Blood Product Administration S: [id number] PATRICIA VEGA MD Oct 30, 2024 23:13
== END 2024-10-30 12:15 | disposition home or self-care (01) | DRG 241 ==
LOC: EDBD 23:50 → ER 23:50 → OVERFLOW 10-28 05:13 → TELE-EAST 10-28 21:00
PROVIDERS: ADMIT Student in an Organized Health Care Education/Training Program; ATTEND Student in an Organized Health Care Education/Training Program
PROC: 30233N1 Transfusion of Nonautologous Red Blood Cells into Peripheral Vein, Percutaneous Approach (ICD-10-PCS; principal; 2024-10-28)
PROC: 0DB98ZX Excision of Duodenum, Via Natural or Artificial Opening Endoscopic, Diagnostic (ICD-10-PCS; 2024-10-29)
PROC: 0DB78ZX Excision of Stomach, Pylorus, Via Natural or Artificial Opening Endoscopic, Diagnostic (ICD-10-PCS; 2024-10-29)
PROC: 0DB48ZX Excision of Esophagogastric Junction, Via Natural or Artificial Opening Endoscopic, Diagnostic (ICD-10-PCS; 2024-10-29)
DX: K29.01 Acute gastritis with bleeding (principal); K22.11 Ulcer of esophagus with bleeding; K21.01 Gastro-esophageal reflux disease with esophagitis, with bleeding; K26.4 Chronic or unspecified duodenal ulcer with hemorrhage; D64.9 Anemia, unspecified; F15.10 Other stimulant abuse, uncomplicated; K29.70 Gastritis, unspecified, without bleeding; F41.9 Anxiety disorder, unspecified; K44.9 Diaphragmatic hernia without obstruction or gangrene; K29.81 Duodenitis with bleeding; F19.10 Other psychoactive substance abuse, uncomplicated
CPT/HCPCS: 36415; 36430; 43239; 71045; 74177; 80048; 80053; 80307; 81001; 85025; 85610; 85730; 86850; 86900; 86901; 86920; 93005; 99291; G0378; J2250; J2470